=== PATIENT | male | born 1985 | race African-American/Black ===

== ENCOUNTER 2016-11-23 12:19 | Emergency (ER) | payer SELFPAY ==
[~2016-11-23] VITALS: Ht 175.3 cm; Wt 74.0 kg
[2016-11-23] MEDS ORDERED: TETANUS, DIPHTHERIA, PERTUSSIS VAC/PF 0.5ML (>7YR OLD) IM ONE (13:30)
[2016-11-23] MEDS ORDERED: BACITRACIN ZINC OINT UDPKT TOP ONE (13:30)
[2016-11-23] MEDS ORDERED: LIDOCAINE HCL 1% 20ML VIAL (Pyxis) INJ MC ONE (13:30)
[2016-11-23 16:40] VITALS: BP 133/82
== END 2016-11-23 16:42 | disposition home or self-care (01) ==
LOC: ER 15:15
DX: S01.511A Laceration without foreign body of lip, initial encounter (principal); S00.531A Contusion of lip, initial encounter; Y08.89XA Assault by other specified means, initial encounter; Y93.89 Activity, other specified; Y92.89 Other specified places as the place of occurrence of the external cause; Y99.8 Other external cause status; Z87.898 Personal history of other specified conditions; Z98.890 Other specified postprocedural states; F12.10 Cannabis abuse, uncomplicated; Z23 Encounter for immunization
CPT/HCPCS: 12011; 70110; 90471; 90715; 99284; J3490; X7700; Z7610